=== PATIENT | male | born 2000 | race Hispanic/Latino ===

== ENCOUNTER 2022-05-16 07:20 | Emergency (ER) | payer MEDICAID, OTHER ==
[~2022-05-16] VITALS: Ht 160 cm; Wt 78.9 kg
[2022-05-16 07:23] VITALS: BP 157/98
[2022-05-16] MEDS ORDERED: DiphenhydrAMINE HCL 50 MG/ML VIAL IM ONE (08:00)
[2022-05-16] MEDS ORDERED: DEXAMETHASONE SOD PHOSPHATE 4 MG/ML 1ML VIAL IM ONE (08:00)
== END 2022-05-16 09:17 | disposition home or self-care (01) ==
LOC: EDH 07:20
DX: K13.79 Other lesions of oral mucosa (principal); Z20.822 Contact with and (suspected) exposure to COVID-19; Z79.52 Long term (current) use of systemic steroids
CPT/HCPCS: 99284; 87635; 87880; 87804 ×2; 96372 ×2; J1100; C9803; J1200